=== PATIENT | male | born 1960 | race Caucasian/White ===

== ENCOUNTER 2019-03-09 22:34 | Emergency (ER) | payer OTHER ==
[~2019-03-09] VITALS: Ht 167.6 cm; Wt 86.2 kg
[2019-03-09] MEDS ORDERED: OMEPRAZOLE20 MG PO (23:10)
[2019-03-09] MEDS ORDERED: MELO7.5 PO (23:11)
[2019-03-09] MEDS ORDERED: CHOLESTYRAMINE (23:11)
== END 2019-03-10 01:00 | disposition home or self-care (01) ==
LOC: ER 22:34
DX: S09.90XA Unspecified injury of head, initial encounter (principal); S16.1XXA Strain of muscle, fascia and tendon at neck level, initial encounter; Z79.899 Other long term (current) drug therapy; V27.4XXA Motorcycle driver injured in collision with fixed or stationary object in traffic accident, initial encounter
CPT/HCPCS: 70450; 72125; 99284-25